=== PATIENT | female | born 1985 | race Two or more races ===

== ENCOUNTER 2016-07-05 07:47 | Emergency (ER) | payer SELFPAY ==
[~2016-07-05] VITALS: Ht 167.6 cm; Wt 86.2 kg
--- NOTE | 2016-07-05 08:10 | NUR ---
PT CAME IN FOR BACK PAIN, CHEST PAIN X 3 DAYS. DENIES TRAUMA. TOOK PAIN MEDS AT HOME WITH NO RELIEF. NOTED GEN WEAKNESS. MD AT BS FOR EVAL. VSS. SAFETY AND COMFORT MEASURES PROVIDED. WILL MONITOR. URINE SAMPLE OBTAINED.
[2016-07-05] MEDS ORDERED: IV NS 0.9% 1,000 ML ONE (08:12)
[2016-07-05] MEDS ORDERED: MORPHINE SULFATE INJ 4 MG/ML DISP.SYRIN ONE (08:12)
[2016-07-05] MEDS ORDERED: IV SET PRIMARY PUMP SET 1 EA INFUS.SET MC ONE (08:12)
[2016-07-05] MEDS ORDERED: ONDANSETRON HCL/PF 4 MG/2 ML VIAL ONE (08:12)
[2016-07-05] MEDS ORDERED: PANTOPRAZOLE 40 MG VIAL ONE (08:12)
[2016-07-05] MEDS ORDERED: MORPHINE SULFATE INJ 2 MG/ML DISP.SYRIN IV ONE (08:30)
[2016-07-05] MEDS ORDERED: IV NS 0.9% 1,000 ML BAG IV ONE (08:30)
[2016-07-05] MEDS ORDERED: ONDANSETRON HCL/PF 4 MG/2 ML VIAL IVP ONE (08:30)
[2016-07-05] MEDS ORDERED: PANTOPRAZOLE 40 MG VIAL IV ONE (08:30)
--- NOTE | 2016-07-05 08:30 | NUR ---
IV ACCESS STARTED. PT MEDICATED ORDERED. BLOOD DRAWN FOR LABS.
[2016-07-05 08:38] LABS: BASOPHILS % (AUTO) 0.5 % (0.0-2.0); EOSINOPHILS # (AUTO) 0.3 /CMM (0.0-0.7); EOSINOPHILS % (AUTO) 3.6 % (0.0-6.0); HEMATOCRIT 40 % (33-45); HEMOGLOBIN 13.1 g/dL (11.5-14.8); LYMPHOCYTES # (AUTO) 1.4 /CMM (0.8-4.8); LYMPHOCYTES % (AUTO) 19.3 % (20.0-44.0); MEAN CORPUSCULAR HEMOGLOBIN 29 PG (26.0-33.0); MEAN CORPUSCULAR HGB CONC 33 g/dl (31.0-36.0); MEAN CORPUSCULAR VOLUME 87 fL (82-100); MONOCYTES # (AUTO) 0.4 /CMM (0.1-1.30); NEUTROPHILS # (AUTO) 5.1 /CMM (1.8-8.9); NEUTROPHILS % (AUTO) 70.6 % (43.0-81.0); PLATELET COUNT (AUTO) 180 /CMM (150-450); RDW COEFFICIENT OF VARIATION 14.5 (11.5-15.0); RED BLOOD CELL COUNT(AUTO) 4.56 MIL/uL (4.0-5.2); WHITE BLOOD COUNT (AUTO) 7.3 K/uL (4.3-11.0)
[2016-07-05 08:49] LABS: CALCIUM, SERUM 8.7 mg/dL (8.5-10.1); CARBON DIOXIDE 26 mmol/L (21-32); CHLORIDE 106 mmol/L (98-107); CREATININE 0.8 mg/dL (0.6-1.3); GFR 84 mL/min (>60); GLUCOSE 93 mg/dL (74-106); POTASSIUM 4.2 mmol/L (3.5-5.1); SODIUM SERUM 139 mmol/L (136-145); UREA NITROGEN, BLOOD 12 mg/dL (7-18)
[2016-07-05 08:55] LABS: ALANINE AMINOTRANSFERASE 31 U/L (12-78); ALBUMIN 3.8 g/dL (3.4-5.0); ALKALINE PHOSPHATASE 83 U/L (46-116); ASPARTATE AMINOTRANSFERASE 13 U/L (15-37); BILIRUBIN,DIRECT 0.1 mg/dL (0.0-0.2); BILIRUBIN,TOTAL 0.5 mg/dL (0.2-1.0); INR 0.94 (0.87-1.13); TOTAL PROTEIN, SERUM 7.3 g/dL (6.4-8.2)
[2016-07-05 08:57] LABS: TROPONIN I < 0.017 ng/mL (0.00-0.056)
[2016-07-05] MEDS ORDERED: IOHEXOL-350 100 ML VIAL IV ONE (09:04)
[2016-07-05] MEDS ORDERED: IV NS 0.9% 250 ML IV ONE (09:05)
[2016-07-05] MEDS ORDERED: CT SWABBABLE VALVE TRANS SET 1 EA INFUS.SET MC ONE (09:05)
--- NOTE | 2016-07-05 09:22 | NUR ---
PT TAKEN TO CT.
--- NOTE | 2016-07-05 10:00 | NUR ---
Patient is resting comfortably in bed with eyes closed. Easily aroused. VSS
--- NOTE | 2016-07-05 10:37 | NUR ---
IV removed. Catheter intact and site benign. Pressure and 4x4 applied to site. No bleeding noted.
--- NOTE | 2016-07-05 10:37 | NUR ---
Patient discharged to home in stable condition. Written and verbal after care instructions given. Patient verbalizes understanding of instruction.
[2016-07-05 10:58] VITALS: BP 122/71
== END 2016-07-05 10:59 | disposition home or self-care (01) ==
LOC: ER 07:48
DX: R07.1 Chest pain on breathing (principal); M54.6 Pain in thoracic spine; F17.200 Nicotine dependence, unspecified, uncomplicated; R79.1 Abnormal coagulation profile; Z88.8 Allergy status to other drugs, medicaments and biological substances
CPT/HCPCS: 36415; 71010; 71275; 80048; 80076; 84484; 84702; 84703; 85025; 85730; 93005; 96361; 96374; 96375; 99285; A4606; C9113; J2270; J2405; J7030; J7050; Q9967; Z7610